=== PATIENT | male | born 1980 | race Caucasian/White ===

== ENCOUNTER 2023-06-22 10:20 | Emergency (ER) | payer BC ==
[2023-06-22] MEDS ORDERED: Aspirin 81 MG Tab.Chew PO ONE (10:40)
[2023-06-22 11:02] LABS: BASOPHILS ABSOLUTE AUTO 0.04 10^3/uL (0.00-0.10); BASOPHILS PERCENT AUTO 0.6 % (0.0-1.0); EOSINOPHILS ABSOLUTE AUTO 0.15 10^3/uL (0.10-0.30); EOSINOPHILS PERCENT AUTO 2.1 % (1.0-3.0); HEMATOCRIT 44.3 % (40.0-52.0); HEMOGLOBIN 14.8 g/dL (13.0-17.0); IMMATURE GRAN ABSOLUTE AUTO 0.05 10^3/uL (0.00-0.50); IMMATURE GRAN PERCENT AUTO 0.7 % (0.0-5.0); LYMPHOCYTES ABSOLUTE AUTO 2.62 10^3/uL (1.00-4.00); LYMPHOCYTES PERCENT AUTO 36.8 % (20.0-40.0); MEAN CORPUSCULAR HEMOGLOBIN 28.8 pg (27.0-31.0); MEAN CORPUSCULAR HGB CONC 33.4 g/dL (32.0-36.0); MEAN CORPUSCULAR VOLUME 86.2 fL (82.0-92.0); MEAN PLATELET VOLUME 10.2 fL (7.4-10.4); MONOCYTES ABSOLUTE AUTO 0.61 10^3/uL (0.10-0.80); MONOCYTES PERCENT AUTO 8.6 % (2.0-8.0); NEUTROPHILS ABSOLUTE AUTO 3.64 10^3/uL (2.50-7.00); NEUTROPHILS PERCENT AUTO 51.2 % (50.0-70.0); PLATELET COUNT,PLT 274 10^3/uL (150-400); RED BLOOD CELL COUNT 5.14 10^6/uL (4.50-6.00); RED CELL DISTRIBUTION WIDTH 12.2 % (11.5-14.5); WHITE BLOOD CELL COUNT,WBC 7.11 10^3/uL (5.00-10.00)
[2023-06-22 11:23] LABS: ALBUMIN 3.81 g/dL (3.40-5.00); ANION GAP 14.3 mmol/L (5-15); BILIRUBIN TOTAL 0.2 mg/dL (0.2-1.0); CARBON DIOXIDE,CO2 25.8 mmol/L (21.0-32.0); CREATININE 0.89 mg/dL (0.51-1.17); EST CRCL DRUG DOSING (CG) 113.92 mL/min; POTASSIUM,K 4.1 mmol/L (3.5-5.1); PROTEIN TOTAL,TP 7.5 g/dL (6.4-8.2)
[2023-06-22 11:48] VITALS: BP 155/96; PULSE 64
== END 2023-06-22 12:18 | disposition home or self-care (01) ==
LOC: KA.ED 10:20
DX: R07.89 Other chest pain (principal); I10 Essential (primary) hypertension; F41.9 Anxiety disorder, unspecified; F43.10 Post-traumatic stress disorder, unspecified; F17.210 Nicotine dependence, cigarettes, uncomplicated; Z86.59 Personal history of other mental and behavioral disorders; Z79.899 Other long term (current) drug therapy; Z88.1 Allergy status to other antibiotic agents
CPT/HCPCS: 80053; 83880; 84484; 85025; 93005; 93010; 99284; 99285; A9270-GY